=== PATIENT | male | born 1950 | race Caucasian/White ===

== ENCOUNTER → 2018-06-04 | Outpatient (CLI) | payer MEDICARE, BC ==
[~2018-06-04] MED LIST: ASPIRIN 32325 MG/TAB PO; ASPIRIN E.C. 8181 MG PO; BENADRYL PO; BENADRYL50 MG PO; BETAPACE AF160 MG PO; CORDARONE200 MG/TAB PO; COUMADIN 1010 MG/TAB PO; COUMADIN 5MG5 MG/TAB PO; DAILY MULTIPLE1 TA3 PO; EPA FISH OIL1000 MG PO; ESIDRIX25 MG PO; GLUCOPHAGE XR500 M1 PO; GLUCOPHAGE1000 MG PO; METFORMIN1000 MG PO; METFORMIN500 MG PO; NORVASC2.5 MG PO; PACERONE100 MG PO; PREDNISONE20 MG PO; RT SPIRIVA18 MCG IH; SOTALOL80 MG PO; TYLENOL 500MG500 MG PO; VASOTEC 10M10 MG/TAB PO; VASOTEC PO; VASOTEC10 MG PO; ZITHROMAX500 M2 PO
== END ==
LOC: COL.RAD 07:55
DX: N18.2 Chronic kidney disease, stage 2 (mild) (principal)

== ENCOUNTER 2018-12-07 17:24 | Observation (INO) | payer OTHER, MEDICARE, BC ==
[~2018-12-07] VITALS: Ht 180.3 cm; Wt 63.8 kg
[~2018-12-07 17:24] MED LIST changes: -COUMADIN 5MG5 MG/TAB PO; +COUMADIN 77.5 MG/TAB PO; -GLUCOPHAGE1000 MG PO; +GLUCOPHAGE500 MG/TAB PO
[2018-12-07 18:12] LABS: BASO % 0.2 % (0.0-2.0); EOS # 0.2 (0.0-0.7); EOS % 1.6 % (0-4.0); GRAN # 7.2 (1.4-6.5); GRAN % 69.5 % (42.2-75.2); HEMATOCRIT 38.9 % (42.0-52.0); HEMOGLOBIN 13.5 g/dl (13.5-18.0); INR 2.3 (0.8-3.0); LYMPH # 2.3 (1.2-3.4); LYMPH % 22.2 % (20.0-51.0); MEAN CELL VOLUME 100 fl (80.0-100.0); MEAN CORPUSCULAR HEMOGLOBIN 35 pg (27.0-31.0); MEAN CORPUSCULAR HGB CONC 35 g/dl (33.0-37.0); MEAN PLATELET VOLUME 9.7 fl (7.4-10.4); MONO # 0.6 (0.1-0.6); PLATELET COUNT 310 K/mm3 (130-400); RED BLOOD COUNT 3.88 M/mm3 (4.20-5.60); REDCELL DISTRIBUTION WIDTH-CV 12.9 % (11.5-14.5)
[2018-12-07 18:52] LABS: ALBUMIN 4.5 gm/dL (3.5-5.0); BILIRUBIN,TOTAL 0.7 mg/dL (0.0-1.0); CALCIUM 9.4 mg/dL (8.4-10.2); CREATININE, serum 1.05 (0.66-1.25); POTASSIUM 4.1 mmol/L (3.4-5.0); TOTAL PROTEIN 8.3 gm/dL (6.4-8.2)
[2018-12-07] MEDS ORDERED: INCRUSE EL62.5 MCG/A INH (20:24)
[2018-12-07] MEDS ORDERED: HYTRIN 1MG C1 MG/CAP PO (20:25)
[2018-12-07] MEDS ORDERED: YUPELRI175 MCG/3 INH (20:25)
[2018-12-07] MEDS ORDERED: BROVANA15 MCG/2 M INH (20:26)
--- NOTE | 2018-12-07 21:51 | NUR ---
Pt. sitting up in bed at this time. Pt. is A&OX3, assessment complete. INT to rt. forearm patent, IV fluids started at this time. Pt. reports pain to lt. clavicle, and lt. ribs at a 6 on pain scale. Will give pain meds per orders. Pt. denies further needs, call light within reach.
[2018-12-07 22:15] VITALS: BP 133/72; PULSE 92; TEMP 97.7
[2018-12-07 23:58] VITALS: BP 110/62; PULSE 93; TEMP 97.9
[2018-12-08 03:45] VITALS: BP 123/68; PULSE 87; TEMP 97.8
--- NOTE | 2018-12-08 06:10 | NUR ---
Pt. resting in bed at this time. Pt. remains A&OX3. IV to rt. forearm patent, fluids infusing per order. Pt. reported pain at a 6 on pain scale this am. Gave pain meds per orders. Pt. denies further nees, call light within reach.
[2018-12-08 07:55] VITALS: BP 150/78; PULSE 84; TEMP 97.6
[2018-12-08 08:32] LABS: HEMOGLOBIN 12.1 g/dl (13.5-18.0)
[2018-12-08 08:37] LABS: HEMATOCRIT 35.9 % (42.0-52.0)
[2018-12-08 08:39] LABS: INR 1.8 (0.8-3.0); PROTHROMBIN TIME 20.6 SECONDS (9.7-12.8)
[2018-12-08 08:43] LABS: CALCIUM 8.8 mg/dL (8.4-10.2); CREATININE, serum 0.86 (0.66-1.25); POTASSIUM 4.1 mmol/L (3.4-5.0)
--- NOTE | 2018-12-08 09:01 | NUR ---
KELLY met with the patient to discuss discharge plan. The patient lives alone in [place], but reports that his daughter (Breanna) has been staying with him. He states he works part-time at [employer]. He reports independence with ADLs prior to hospitalization and has a cane. The patient's PCP is Dr. Ping Falcon and he receives his medications at the [facility]. He reports no difficulties obtaining his meds. He states that his daughter is able to pick them up for him, if he is unable to. The patient does not have advanced directives, but he was interested in obtaining a form for [employer]. KELLY provided. The patient plans to return home with his daughter upon discharge. No additional needs at this time.
[2018-12-08 12:11] VITALS: BP 140/74; PULSE 87; TEMP 97.5
--- NOTE | 2018-12-08 12:28 | NUR ---
First visit from the director script. No needs right now.
[2018-12-08 16:12] VITALS: BP 162/89; PULSE 88; TEMP 98
--- NOTE | 2018-12-08 18:00 | NUR ---
Patient did ok today. She needs a lot encouragement to move around. He is using his incentive sprometer as ordered. Earlier he was refusing a nicotine patch but is requesting one now. He has the sling and swath on to the left arm. No complaints of nausea. Minimal complaints of pain. No other changes at this time. Call light within reach.
--- NOTE | 2018-12-08 19:17 | NUR ---
Report received from GRETCHEN Hdz.
[2018-12-08 19:50] VITALS: BP 150/73; PULSE 91; TEMP 98
[2018-12-09] VITALS: BP 110/63; PULSE 96; TEMP 98.3
[2018-12-09 03:54] VITALS: BP 145/73; PULSE 85; TEMP 98
--- NOTE | 2018-12-09 05:27 | NUR ---
Patient has received pain medication x1 this shift. Noted to sleep well throughout the night. Will continue to monitor.
--- NOTE | 2018-12-09 07:09 | NUR ---
Report given to GRETCHEN Hdz.
[2018-12-09 07:10] VITALS: BP 157/73; PULSE 95; TEMP 97.9
[2018-12-09] MEDS ORDERED: NORCO 325 MG-51 TAB PO (10:43)
--- NOTE | 2018-12-09 12:00 | NUR ---
Patient is discharging home. Discharge instructions discussed with patient. No questions verbalized. INT discontinued. All belongings packed up and sent with patient. Explained when follow up appointments are. Explained to wear sling and swath at all times. Explained that he has a prescription for norco to take to the pharmacy to get filled. Copies of belongins given to patient. Patient is waiting for his ride home.
== END 2018-12-09 12:45 | disposition home or self-care (01) ==
LOC: COL.ER 17:24 → SURG 18:44
PROVIDERS: Family Medicine; ADMIT Surgery
DX: S22.42XA Multiple fractures of ribs, left side, initial encounter for closed fracture (principal); S42.022A Displaced fracture of shaft of left clavicle, initial encounter for closed fracture; S42.102A Fracture of unspecified part of scapula, left shoulder, initial encounter for closed fracture; I48.91 Unspecified atrial fibrillation; Z79.01 Long term (current) use of anticoagulants; J44.9 Chronic obstructive pulmonary disease, unspecified; I10 Essential (primary) hypertension; E11.9 Type 2 diabetes mellitus without complications; Z88.6 Allergy status to analgesic agent; Z88.1 Allergy status to other antibiotic agents; Z79.84 Long term (current) use of oral hypoglycemic drugs; Z79.82 Long term (current) use of aspirin; Z86.73 Personal history of transient ischemic attack (TIA), and cerebral infarction without residual deficits; Z88.2 Allergy status to sulfonamides; F17.210 Nicotine dependence, cigarettes, uncomplicated; V69.9XXA Occupant (driver) (passenger) of heavy transport vehicle injured in unspecified traffic accident, initial encounter
CPT/HCPCS: A9284; G0378; J2270; J7030; Q9967

== ENCOUNTER 2020-01-20 09:36 | Day surgery (SDC) | payer MEDICARE, BC ==
[2008-05-25 14:56] VITALS: BP 124/82
[~2020-01-20] VITALS: Ht 180.3 cm; Wt 69.9 kg
[~2020-01-20 09:36] MED LIST changes: +BROVANA15 MCG/2 M INH; +HYTRIN 1MG C1 MG/CAP PO; +INCRUSE EL62.5 MCG/A INH; +NORCO 325 MG-51 TAB PO; +YUPELRI175 MCG/3 INH
[2020-01-20 10:23] VITALS: BP 113/81; PULSE 142; TEMP 97.6
[2020-01-20] MEDS ORDERED: CARDIZEM 30MG T30 MG PO (10:31)
[2020-01-20 10:39] LABS: INR 2.8 (0.8-3.0); POTASSIUM 4.2 mmol/L (3.4-5.0); PROTHROMBIN TIME 32.1 SECONDS (9.7-12.8)
[2020-01-20 11:11] LABS: THYROID STIMULATING HORMONE 1.1 uIU/mL (0.465-4.680)
[2020-01-20 11:40] VITALS: BP 125/80; PULSE 84
--- NOTE | 2020-01-20 11:40 | NUR ---
REPORT RECIEVED, PT DID NOT RECIEVE CARDIOVERSION TODAY, AFTER KIM AND MEDICATION GIVEN PT CONVERTED TO SR. POST EKG DONE WITH DR CUADRA REVIEWED. PT IS AWAKE AND ALERT, RESTS IN BED, CALL LIGHT IN REACH, NO C/O
[2020-01-20 12:00] VITALS: BP 136/50; PULSE 82
--- NOTE | 2020-01-20 12:00 | NUR ---
PT SITS UP IN BED, TAKES WATER, SR ON MONITOR RATE AT 80
[2020-01-20 12:15] VITALS: BP 141/80; PULSE 82
--- NOTE | 2020-01-20 12:15 | NUR ---
PT STATES READY TO GO HOME, SITS ON SIDE OF BED, AMBULATED TO B/R TO VOID GAIT STABLE.
[2020-01-20 12:30] VITALS: BP 140/78; PULSE 80
--- NOTE | 2020-01-20 12:30 | NUR ---
REVIEWED DISCHARGE INST. WITH PT ON CALLING FOR 1 MONTH APPT AT OFFICE FOR EKG. NO CHANGES IN MEDICATION BY DR CUADRA, REVIEWED MODERATE SEDATION PRECAUTIONS WITH VERBAL UNDERSTANDING.
--- NOTE | 2020-01-20 12:50 | NUR ---
IV D'CD INTACT, PT UP IN ROOM DRESSED, DISCHARGED VIA W/C TO CAR WTIH FRIEND
== END 2020-01-20 12:50 | disposition home or self-care (01) ==
LOC: COL.CAR 09:36
PROVIDERS: Internal Medicine Interventional Cardiology
DX: I48.19 Other persistent atrial fibrillation (principal); E11.22 Type 2 diabetes mellitus with diabetic chronic kidney disease; I12.9 Hypertensive chronic kidney disease with stage 1 through stage 4 chronic kidney disease, or unspecified chronic kidney disease; N18.9 Chronic kidney disease, unspecified; D63.1 Anemia in chronic kidney disease; J44.9 Chronic obstructive pulmonary disease, unspecified; K44.0 Diaphragmatic hernia with obstruction, without gangrene; F17.210 Nicotine dependence, cigarettes, uncomplicated; Z79.82 Long term (current) use of aspirin; Z79.899 Other long term (current) drug therapy; Z88.1 Allergy status to other antibiotic agents; Z88.8 Allergy status to other drugs, medicaments and biological substances; Z86.73 Personal history of transient ischemic attack (TIA), and cerebral infarction without residual deficits; Z79.01 Long term (current) use of anticoagulants; Z79.84 Long term (current) use of oral hypoglycemic drugs; Z80.1 Family history of malignant neoplasm of trachea, bronchus and lung
CPT/HCPCS: J2704; J7030

== ENCOUNTER 2020-02-08 08:09 | Day surgery (SDC) | payer MEDICARE, BC ==
[2008-05-25 14:56] VITALS: BP 124/82
[~2020-02-08] VITALS: Ht 180.3 cm; Wt 64.9 kg
[2020-02-08] VITALS (9 sets, daily range): BP systolic 130–149; BP diastolic 70–80; PULSE 74–79; TEMP 97.8
[~2020-02-08 08:09] MED LIST changes: +CARDIZEM 30MG T30 MG PO
[2020-02-08 09:20] LABS: HEMOGLOBIN 12.7 g/dl (13.5-18.0); MEAN CELL VOLUME 100 fl (80.0-100.0); MEAN CORPUSCULAR HEMOGLOBIN 34 pg (27.0-31.0); MEAN CORPUSCULAR HGB CONC 34 g/dl (33.0-37.0); MEAN PLATELET VOLUME 10.2 fl (7.4-10.4); PLATELET COUNT 270 K/mm3 (130-400); REDCELL DISTRIBUTION WIDTH-CV 13.4 % (11.5-14.5)
[2020-02-08 09:25] LABS: CALCIUM 9.2 mg/dL (8.4-10.2); CREATININE, serum 1.1 (0.66-1.25); POTASSIUM 4.1 mmol/L (3.4-5.0)
[2020-02-08 09:26] LABS: INR 1.3 (0.8-3.0); PROTHROMBIN TIME 14.8 SECONDS (9.7-12.8)
--- NOTE | 2020-02-08 10:23 | NUR ---
SEE MERGE FOR MEDICATION ADMINISTRATION TIMES AND INTRA AND POST SEDATION ASSESSMENTS.
--- NOTE | 2020-02-08 11:15 | NUR ---
pt to eu 11 via bed from heart cath. pt is alert and orienated x3, hob elevated, call light in reach, TR band on, no c/o pain or sob, drinks water
--- NOTE | 2020-02-08 11:45 | NUR ---
pt sits up eats lunch, no c/o
--- NOTE | 2020-02-08 13:45 | NUR ---
iv d'cd intact. reviewed discharge inst. with pt on care of site and activity. pt will make own followup appt in 2 weeks at office he stated. no changes in medications. pt up in room dressed, discharged via w/c to car with friend at 1410
--- NOTE | 2020-02-08 15:48 | NUR ---
released 2cc of air, in 10 released another 2cc, then 2cc till released, no bleeding, or swelling, bandaid applied with wrap
== END 2020-02-08 14:10 | disposition home or self-care (01) ==
LOC: COL.CAR 08:09
PROVIDERS: Internal Medicine Cardiovascular Disease
DX: I48.0 Paroxysmal atrial fibrillation (principal); J44.9 Chronic obstructive pulmonary disease, unspecified; E11.9 Type 2 diabetes mellitus without complications; M79.604 Pain in right leg; M79.605 Pain in left leg; N40.0 Benign prostatic hyperplasia without lower urinary tract symptoms; Z79.899 Other long term (current) drug therapy; F17.210 Nicotine dependence, cigarettes, uncomplicated; Z79.84 Long term (current) use of oral hypoglycemic drugs; Z86.73 Personal history of transient ischemic attack (TIA), and cerebral infarction without residual deficits; Z88.1 Allergy status to other antibiotic agents; Z88.8 Allergy status to other drugs, medicaments and biological substances; Z79.82 Long term (current) use of aspirin
CPT/HCPCS: J1644; J2250; J3010; Q9967

== ENCOUNTER → 2023-04-27 | Outpatient (CLI) | payer MEDICARE | LOC: CANSCHCLI → COL.RAD 13:10 | DX: Z12.2 Encounter for screening for malignant neoplasm of respiratory organs (principal); F17.200 Nicotine dependence, unspecified, uncomplicated ==